=== PATIENT | male | born 1970 | race Asian ===

== ENCOUNTER 2021-09-16 10:03 | Emergency (ER) | payer BC ==
[~2021-09-16] VITALS: Ht 170.2 cm; Wt 88.3 kg
--- NOTE | 2021-09-16 10:48 | PHYS DOC ---
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 Patient states he did not have any issues with previous Pfiezer Covid vaccine. patient denies any chest pain. He states symptoms are worse when he is standing up. He states he occasionally gets short of air. Denies any fever, cough, nasal conge stion. He states years ago he had palpitations and was put on a Holter monitor, he states the palpitations were considered benign. (REGINALDO ROMERO BLENDING MACHINE FEEDER) Review of Systems Review of Systems Constitutional: Denies fever or chills [] Eyes: Denies change in visual acuity, redness, or eye pain [] HENT: Denies nasal congestion or sore throat [] Respiratory: Denies cough or shortness of breath [] Cardiovascular: Reports palpitations GI: Denies abdominal pain, nausea, vomiting, bloody stools or diarrhea [] : Denies dysuria or hematuria [] Musculoskeletal: Denies back pain or joint pain [] Integument: Denies rash or skin lesions [] Neurologic: Denies headache, focal weakness or sensory changes [] All other systems were reviewed and found to be within normal limits, except as documented in this note. (REGINALDO ROMERO BLENDING MACHINE FEEDER) Allergies Allergies Allergies Coded Allergies Type Severity Reaction Last Updated Verified doxycycline Allergy Unknown 09/16/21 Yes (REGINALDO ROMERO BL[employer] MACHINE FEEDER) Physical Exam Physical Exam Constitutional: Well developed, well nourished, no acute distress, non-toxic appearance. [] HENT: Normocephalic, atraumatic, bilateral external ears normal, oropharynx moist, no oral exudates, nose normal. [] Eyes: PERRLA, EOMI, conjunctiva normal, no discharge. [] Neck: Normal range of motion, no tenderness, supple, no stridor. [] Cardiovascular: Tachycardic Lungs & Thorax: Bilateral breath sounds clear to auscultation [] Abdomen: Bowel sounds normal, soft, no tenderness, no masses, no pulsatile mass es. [] Skin: Warm, dry, no erythema, no rash. [] Back: No tenderness, no CVA tenderness. [] Extremities: No tenderness, no cyanosis, no clubbing, ROM intact, no edema. [] Neurologic: Alert and oriented X 3, normal motor function, normal sensory function, no focal deficits noted. [] Psychologic: Affect normal, judgement normal, mood normal. [] (REGINALDO ROMERO BLENDING MACHINE FEEDER) Current Patient Data Vital Signs Vital Signs Date Time Temp Pulse Resp B/P (MAP) Pulse Ox O2 Delivery O2 Flow Rate FiO2 09/16/21 10:17 99.5 109 24 147/108 (121) 99 Room Air (REGINALDO ROMERO BLENDING MACHINE FEEDER) EKG EKG [address] Cabrera sinus rhythm heart rate 95 no STEMI [] (REGINALDO ROMERO BLENDING MACHINE FEEDER) Radiology/Procedures Radiology/Procedures []PROCEDURE: PORTABLE CHEST 1V XR CHEST 1V 09/16/2021 10:40 AM INDICATION: Palpitations COMPARISON: None available TECHNIQUE: Portable frontal view of the chest is provided. FINDINGS: The cardiomediastinal silhouette is within normal limits. Lungs are clear. There are no significant pleural effusions. There is no pulmonary vascular congestion. No pneumothorax. No suspicious osseous abnormality. IMPRESSION: There is no acute cardiopulmonary process. Electronically signed by: Mariam Danielle MD (09/16/2021 11:08 AM) [id number] DICTATED AND SIGNED BY: MARIAM DANIELLE MD DATE: 09/16/21 1108 CC: REGINALDO ROMERO BLENDING MACHINE FEEDER; ROGELIO SPRING MD ~MTH0 0 PROCEDURE: CT ANGIOGRAPHY CHEST CT Angio chest 09/16/2021 12:14 PM Indication: Reason: palpitations / Spl. Instructions: / History: Technique: Multiple contiguous axial images were obtained through the chest after administration of intravenous iodinated contrast. Coronal, sagittal, and 3-D MIP reformations were created. Comparison: Chest radiograph earlier today Findings: There is no filling defect within central pulmonary arteries or evidence of acute pulmonary embolism. Heart size is normal. No pericardial effusion is appreciated. No pathologically enlarged mediastinal lymph nodes are seen. . The thoracic aorta is grossly normal in course and contour. There is no pneumothorax or pleural effusion. No acute infiltrates are seen. Limited visualization of the upper abdomen demonstrates no acute abnormality. No acute osseous abnormalities are appreciated. Impression: No evidence of acute pulmonary embolism or other acute cardiopulmonary process CT DOSING PQRS STATEMENT: One or more of the following individualized dose reduction techniques were utilized for this examination: 1. Automated exposure control 2. Adjustment of the mA and/or kV according to patient size 3. Use of iterative reconstruction technique Electronically signed by: Garcia Cotto MD (09/16/2021 12:35 PM) [id number] DICTATED AND SIGNED BY: GARCIA COTTO MD DATE: 09/16/21 1229 CC: REGINALDO ROMERO APRN; ROGELIO SPRING MD ~MTH0 0 (REGINALDO ROMERO APRN) Heart Score C/O Chest Pain: N/A Risk Factors: Risk Factors: DM, Current or recent (<one month) smoker, HTN, HLP, family history of CAD, obesity. Risk Scores: Risk Factors: DM, Current or recent (<one month) smoker, HTN, HLP, family history of CAD, obesity. (REGINALDO ROMERO APRN) Course & Med Decision Making Course & Med Decision Making Pertinent Labs and Imaging studies reviewed. (See chart for details) This is a 51-year-old male patient presented to the ED today with palpitations 2 days ago after receiving Pfizer Covid vaccine booster dose. Vitals on arrival to the ED temperature 99.5, heart rate 109, respiration 24 on room air, O2 sats 99%, blood pressure 147/108. CBC with no acute findings, CMP with potassium of 3.2. Patient was given oral potassium replacement. D-dimer 0.87, CTA chest was obtained and negative. UA positive for UTI, patient was given prescription for Cipro. Discharge to home. Provided cardiology for follow-up. (REGINALDO ROMERO APRN) Dragon Disclaimer Dragon Disclaimer This electronic medical record was generated, in whole or in part, using a voice recognition dictation system. (REGINALDO ROMERO APRN) Attending Co-Sign The patient was seen and interviewed as well as examined at the bedside. The chart was reviewed. The case was discussed. Agree with the plan of care. (JEANETTE CABRERA DO) Departure Departure: Impression: Primary Impression: Palpitations Additional Impression: Urinary tract infection Disposition: HOME / SELF CARE / HOMELESS Condition: STABLE Referrals: ROGELIO SPRING MD (PCP) follow up in one week BRIONNA FARIA MD follow up as soon as you can Patient Instructions: Palpitations, Urinary Tract Infection Additional Instructions: You were evaluated in the emergency room for palpitations. We highly encourage you to contact the provided financial aid counselor and follow-up, also follow-up with your primary care doctor. Your urine was noted for infection. Take the prescribed antibiotics until completed. Come back to the ED at any point symptoms worsen Scripts Ciprofloxacin Hcl (CIPROFLOXACIN HCL) 500 Mg Tablet 1 TAB PO BID, #14 TAB Prov: REGINALDO ROMERO APRN 09/16/21 Problem Qualifiers Additional Impression: Urinary tract infection Urinary tract infection type: site unspecified Hematuria presence: without hematuria Qualified Codes: N39.0 - Urinary tract infection, site not specified REGINALDO ROMERO APRN Sep 16, 2021 10:48 JEANETTE CABRERA DO Sep 16, 2021 17:43
--- NOTE | 2021-09-16 11:11 | RAD ---
XR CHEST 1V 09/16/2021 10:40 AM INDICATION: Palpitations COMPARISON: None available TECHNIQUE: Portable frontal view of the chest is provided. FINDINGS: The cardiomediastinal silhouette is within normal limits. Lungs are clear. There are no significant pleural effusions. There is no pulmonary vascular congestion. No pneumothora x. No suspicious osseous abnormality. IMPRESSION: There is no acute cardiopulmonary process. Electronically signed by: Arlyn Crouch MD (09/16/2021 11:08 AM) [id number]
[2021-09-16 11:14] LABS: BASO % 1 % (0-3); EOS # 0.2 x10^3/uL (0.0-0.7); EOS % 5 % (0-3); HEMATOCRIT 48.2 % (39.0-53.0); HEMOGLOBIN 15.8 g/dL (13.0-17.5); LYMPH # 0.9 x10^3/uL (1.0-4.8); LYMPH % 19 % (24-48); MEAN CORPUSCULAR HEMOGLOBIN 26 pg (25-35); MEAN CORPUSCULAR HGB CONC 33 g/dL (31-37); MEAN CORPUSCULAR VOLUME 81 fL (79-100); MONO # 0.5 x10^3/uL (0.0-1.1); MONO % 10 % (0-9); NEUT # 3.2 x10^3uL (1.8-7.7); NEUT % 66 % (31-73); PLATELET COUNT 212 x10^3/uL (140-400); RED BLOOD COUNT 5.99 x10^6/uL (4.30-5.70); RED CELL DISTRIBUTION WIDTH 14.1 % (11.5-14.5); WHITE BLOOD COUNT 4.8 x10^3/uL (4.0-11.0)
[2021-09-16 11:26] LABS: CREATININE 1.1 mg/dL (0.7-1.3); GFR 71.1; POTASSIUM 3.2 mmol/L (3.5-5.1)
--- NOTE | 2021-09-16 11:31 | EKG ---
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
[2021-09-16 11:42] LABS: ALBUMIN 3.9 g/dL (3.4-5.0); ALBUMIN/GLOBULIN RATIO 1.3 (1.0-1.7); MAGNESIUM 2.1 mg/dL (1.8-2.4); TOTAL BILIRUBIN 0.8 mg/dL (0.2-1.0)
[2021-09-16] MEDS ORDERED: IOHEXOL 350 MG/ML 100 ML VIAL. IV ONE (12:15)
[2021-09-16 12:25] LABS: BARBITURATES NEG (NEG); BENZODIAZEPINES NEG (NEG); CANNABINOIDS NEG (NEG); COCAINE NEG (NEG); METHADONE NEG (NEG); OPIATES NEG (NEG); PHENCYCLIDINE NEG (NEG)
[2021-09-16 12:27] LABS: AMPHETAMINE/METHAMPHETAMINE NEG (NEG)
[2021-09-16] MEDS ORDERED: CONTRAST GIVEN. MC PRN (12:30)
--- NOTE | 2021-09-16 12:38 | RAD ---
CT Angio chest 09/16/2021 12:14 PM Indication: Reason: palpitations / Spl. Instructions: / History: Technique: Multiple contiguous axial images were obtained through the chest after administration of i ntravenous iodinated contrast. Coronal, sagittal, and 3-D MIP reformations were created. Comparison: Chest radiograph earlier today Findings: There is no filling defect within central pulmonary arteries or evidence of acute pulmonary embolism. Heart size is normal. No pericardial effusion is appreciated. No pathologically enlarged mediastinal lymph nodes are seen. . The thoracic aorta is grossly normal in course and contour. There is no pneu mothorax or pleural effusion. No acute infiltrates are seen. Limited visualization of the upper abdom en demonstrates no acute abnormality. No acute osseous abnormalities are appreciated. Impression: No evidence of acute pulmonary embolism or other acute cardiopulmonary process CT DOSING PQRS STATEMENT: One or more of the following individualized dose reduction techniques were utilized for this examinat ion: 1. Automated exposure control 2. Adjustment of the mA and/or kV according to patient size 3. Use of iterative reconstruction technique Electronically signed by: Garcia Shane MD (09/16/2021 12:35 PM) [id number]
[2021-09-16 12:41] LABS: BACTERIA,URINE 0 /HPF (0-FEW); BILIRUBIN,URINE MOD (NEG); CLARITY,URINE HAZY; COLOR,URINE AMBER; GLUCOSE,URINE NEG (NEG); NITRITE,URINE POS (NEG); SQUAMOUS EPITHELIAL CELL,UR FEW /LPF
[2021-09-16] MEDS ORDERED: CIPR500T2 PO (13:20)
[2021-09-16] MEDS ORDERED: POTASSIUM CHLORIDE 20 MEQ TABLET.ER. PO ONE (13:30)
[2021-09-16 13:35] VITALS: BP 128/80
== END 2021-09-16 13:47 | disposition home or self-care (01) ==
LOC: ER 10:03
DX: R00.2 Palpitations (principal); N39.0 Urinary tract infection, site not specified
CPT/HCPCS: 36415; 71045; 71275; 80053; 80307; 81001; 82553; 83735; 83880; 84443; 84484; 85025; 85379; 85610; 85730; 87086; 93005; 99285; Q9967